=== PATIENT | female | born 1960 | race Caucasian/White ===

== ENCOUNTER → 2018-05-27 | Outpatient (CLI) | payer OTHER ==
[~2018-05-27] MED LIST: CEPH500 PO; CLIN300 PO; HYDACE5 PO
[2018-05-29 14:07] LABS: HPV 16 Negative (Negative); HPV 18 Negative (Negative); HPV OTHER HR TYPES Negative (Negative)
== END | disposition home or self-care (01) ==
LOC: LAB 17:18 → LAB SHORT 17:18
PROVIDERS: Nurse Practitioner Family
DX: Z01.419 Encounter for gynecological examination (general) (routine) without abnormal findings (principal)
CPT/HCPCS: 87624; G0145

== ENCOUNTER 2018-08-08 21:15 | Emergency (ER) | payer OTHER ==
[~2018-08-08] VITALS: Ht 170.2 cm; Wt 72.6 kg
== END 2018-08-08 22:25 | disposition home or self-care (01) ==
LOC: ER 21:15
DX: S60.011A Contusion of right thumb without damage to nail, initial encounter (principal); W22.8XXA Striking against or struck by other objects, initial encounter; Z88.0 Allergy status to penicillin
CPT/HCPCS: 73140; 99283-25; A9270

== ENCOUNTER 2020-05-12 11:48 | Emergency (ER) | payer OTHER ==
[~2020-05-12] VITALS: Ht 165.1 cm; Wt 81.7 kg
[2020-05-12] MEDS ORDERED: PRED5 (12:17)
[2020-05-12] MEDS ORDERED: GABA100 (12:17)
[2020-05-12] MEDS ORDERED: Norco 5-325 Ta1 EACH PO (12:17)
== END 2020-05-12 14:05 | disposition home or self-care (01) ==
LOC: ER 11:48
DX: M79.605 Pain in left leg (principal); Z88.0 Allergy status to penicillin
CPT/HCPCS: 93971; 99283-25

== ENCOUNTER 2021-09-05 12:10 | Inpatient (IN) | payer OTHER ==
[~2021-09-05] VITALS: Ht 167.6 cm; Wt 94.6 kg
[~2021-09-05 12:10] MED LIST changes: +GABA100; +Norco 5-325 Ta1 EACH PO; +PRED5
[2021-09-05] MEDS ORDERED: SULTRIDS PO (12:29)
[2021-09-05 12:56] LABS: BASOPHILS ABSOLUTE AUTO 0.06 K/mm3 (0.00-0.23); BASOPHILS PERCENT AUTO 0 % (0-2); EOSINOPHILS ABSOLUTE AUTO 0.11 K/mm3 (0.00-0.68); EOSINOPHILS PERCENT AUTO 1 % (0-6); Hematocrit 42.4 % (33.0-51.0); Hemoglobin 14.6 g/dL (11.5-16.0); IMMATURE GRAN ABSOLUTE AUTO 0.08 K/mm3 (0.00-0.10); IMMATURE GRAN PERCENT AUTO 1 % (0-1); LYMPHOCYTES PERCENT AUTO 11 % (21-46); MONOCYTES ABSOLUTE AUTO 1.31 K/mm3 (0.16-1.47); MONOCYTES PERCENT AUTO 8 % (4-13); Mean Corpuscular HGB 32.6 pg (26.0-34.0); Mean Corpuscular HGB Conc 34.4 g/dL (31.5-36.5); Mean Corpuscular Volume 95 fL (80-100); Mean Platelet Volume 9.6 fL (9.1-12.4); NEUTROPHILS ABSOLUTE AUTO 13.72 K/mm3 (1.96-9.15); NEUTROPHILS PERCENT AUTO 80 % (41-73); Platelet Count 323 K/mm3 (150-400); RDW Coefficient Variation 11.6 % (11.7-14.2); RDW Standard Deviation 40.5 fL (35.1-46.3); Red Blood Cell Count 4.48 M/mm3 (3.80-5.20); White Blood Cell Count 17.18 K/mm3 (4.00-11.30)
[2021-09-05 13:45] LABS: Alanine Aminotransfer (ALT/SGP 29 U/L (12-78); Albumin, Blood 3.1 g/dL (3.4-5.0); Albumin/Globulin Ratio 0.7 (0.8-1.8); Alk Phos 123 U/L (50-136); Anion Gap 7 mmol/L (6-16); Aspartate Aminotrans (AST/SGOT 24 U/L (12-37); Bilirubin, Total 0.9 mg/dL (0.1-1.0); Blood Urea Nitrogen 12 mg/dL (8-24); Bun/Creatinine Ratio 18.1 (12.0-20.0); C-REACTIVE PROTEIN, EXT RANGE >19.000 mg/dL (0.000-0.300); CO2, Blood 27 mmol/L (21-32); Calcium, Blood 9.1 mg/dL (8.5-10.1); Chloride, Blood 103 mmol/L (98-108); Creatinine, Blood 0.66 mg/dL (0.40-1.00); Globulin, Blood 4.3 g/dL (2.2-4.0); Glomerular Filtration Rate 102 (60-); Glucose, Blood 118 mg/dL (70-99); Potassium, Blood 3.5 mmol/L (3.5-5.5); Sodium, Blood 137 mmol/L (136-145); Total Protein, Blood 7.4 g/dL (6.4-8.2)
--- NOTE | 2021-09-05 18:46 | NUR ---
PATIENT ADMITTED TO MEDICAL FLOOR AT 1830 Patient AOx4, independent in room. Admitted for right hand abscess, surgery planned for tomorrow morning. MD cleaned wound in ER, and applied dressing. NPO at midnight.
[2021-09-05] MEDS ORDERED: Ventolin/Prove6.7 GM INH (21:26)
[2021-09-05] MEDS ORDERED: NEURONTIN300 MG PO (21:26)
[2021-09-05] MEDS ORDERED: IBU800 M1 PO (21:29)
[2021-09-05] MEDS ORDERED: SULFAMETHOXAZO1 EAC1 PO (21:30)
--- NOTE | 2021-09-06 04:22 | NUR ---
SHIFT SUMMARY ADMITTED FOR RIGHT HAND ABSCESS. FULL CODE. PLAN IS FOR SURGICAL CONSULT TO PERFORM A PROCEDURE TODAY. DR. BERNAL IS SURGICAL CONSULT, HE IS AWARE OF CONSULT AND HAS SEEN THE PT. SHE IS INDEPENDENT IN ROOM, REGULAR DIET, ON RA. SHE HAS BEEN NPO SINCE 0000. SHE IS A&O X4. I HAVE MEDICATED FOR PAIN THIS SHIFT. IV ANTIB RX ARE SCHEDULED.
[2021-09-06 05:24] LABS: BASOPHILS ABSOLUTE AUTO 0.04 K/mm3 (0.00-0.23); BASOPHILS PERCENT AUTO 0 % (0-2); EOSINOPHILS ABSOLUTE AUTO 0.07 K/mm3 (0.00-0.68); EOSINOPHILS PERCENT AUTO 0 % (0-6); Hematocrit 39.5 % (33.0-51.0); Hemoglobin 13.5 g/dL (11.5-16.0); IMMATURE GRAN ABSOLUTE AUTO 0.09 K/mm3 (0.00-0.10); IMMATURE GRAN PERCENT AUTO 1 % (0-1); LYMPHOCYTES ABSOLUTE AUTO 1.53 K/mm3 (0.84-5.20); LYMPHOCYTES PERCENT AUTO 9 % (21-46); MONOCYTES ABSOLUTE AUTO 1.51 K/mm3 (0.16-1.47); MONOCYTES PERCENT AUTO 9 % (4-13); Mean Corpuscular HGB 32.7 pg (26.0-34.0); Mean Corpuscular HGB Conc 34.2 g/dL (31.5-36.5); Mean Corpuscular Volume 96 fL (80-100); Mean Platelet Volume 9.7 fL (9.1-12.4); NEUTROPHILS ABSOLUTE AUTO 14.01 K/mm3 (1.96-9.15); NEUTROPHILS PERCENT AUTO 81 % (41-73); Platelet Count 328 K/mm3 (150-400); RDW Coefficient Variation 11.7 % (11.7-14.2); RDW Standard Deviation 41.1 fL (35.1-46.3); Red Blood Cell Count 4.13 M/mm3 (3.80-5.20); White Blood Cell Count 17.25 K/mm3 (4.00-11.30)
[2021-09-06 10:27] LABS: Influenza A, PCR NEGATIVE (NEGATIVE); Influenza B, PCR NEGATIVE (NEGATIVE); Resp Syncytial Virus, PCR NEGATIVE (NEGATIVE); SARS-Cov-2 (COVID-19) PCR, MMC NEGATIVE (NEGATIVE)
--- NOTE | 2021-09-06 10:36 | NUR ---
TO DAY SURG, 10:35
--- NOTE | 2021-09-06 14:42 | NUR ---
PT BP ELEVATED. STATES IN GOOD AMT OF PAIN. MED FOR PAIN.
--- NOTE | 2021-09-06 14:54 | NUR ---
R/T PAIN MANAGEMENT. STARTED ICE PACKS.
--- NOTE | 2021-09-06 18:34 | NUR ---
PT QUITE PLEASANT TODAY. HAD ABSCESS ON RT HAND I&D TODAY. DID HAVE SOME HYPERTENSION. MEDICATED FOR PAIN AND ALSO GAVE ICE PACKS. BP RETURNED TO NORMAL. PT YASMEEN WELL. NO BLEEDING NOTED. FINGERS WARM PINK. CAP REFILL < 3 SEC. PAIN MANAGED WITH AVAIL. MEDS. PT CONTINUES TO AMBULATE TO BATHROOM. STATES LIKE SHOWER AFTER DINNER AND ABX DONE. WILL PASS TO NITE SHIFT ABX NOT DONE FOR SOME TIME YET. BED IN LOW POSITION, CALL LITE IN REACH, CALLS APPROP
[2021-09-07 05:22] LABS: BASOPHILS ABSOLUTE AUTO 0.04 K/mm3 (0.00-0.23); BASOPHILS PERCENT AUTO 0 % (0-2); EOSINOPHILS ABSOLUTE AUTO 0.05 K/mm3 (0.00-0.68); EOSINOPHILS PERCENT AUTO 0 % (0-6); Hematocrit 38.6 % (33.0-51.0); Hemoglobin 13.3 g/dL (11.5-16.0); IMMATURE GRAN ABSOLUTE AUTO 0.07 K/mm3 (0.00-0.10); IMMATURE GRAN PERCENT AUTO 1 % (0-1); LYMPHOCYTES ABSOLUTE AUTO 2.13 K/mm3 (0.84-5.20); LYMPHOCYTES PERCENT AUTO 15 % (21-46); MONOCYTES ABSOLUTE AUTO 1.35 K/mm3 (0.16-1.47); MONOCYTES PERCENT AUTO 9 % (4-13); Mean Corpuscular HGB 33.2 pg (26.0-34.0); Mean Corpuscular HGB Conc 34.5 g/dL (31.5-36.5); Mean Corpuscular Volume 96 fL (80-100); Mean Platelet Volume 9.2 fL (9.1-12.4); NEUTROPHILS ABSOLUTE AUTO 11.06 K/mm3 (1.96-9.15); NEUTROPHILS PERCENT AUTO 75 % (41-73); Platelet Count 360 K/mm3 (150-400); RDW Coefficient Variation 11.7 % (11.7-14.2); RDW Standard Deviation 41.6 fL (35.1-46.3); Red Blood Cell Count 4.01 M/mm3 (3.80-5.20)
[2021-09-07 05:42] LABS: Alanine Aminotransfer (ALT/SGP 23 U/L (12-78); Albumin, Blood 2.6 g/dL (3.4-5.0); Albumin/Globulin Ratio 0.6 (0.8-1.8); Alk Phos 116 U/L (50-136); Anion Gap 9 mmol/L (6-16); Aspartate Aminotrans (AST/SGOT 11 U/L (12-37); Bilirubin, Total 0.3 mg/dL (0.1-1.0); Blood Urea Nitrogen 16 mg/dL (8-24); Bun/Creatinine Ratio 26.9 (12.0-20.0); CO2, Blood 27 mmol/L (21-32); Calcium, Blood 8.9 mg/dL (8.5-10.1); Chloride, Blood 103 mmol/L (98-108); Creatinine, Blood 0.59 mg/dL (0.40-1.00); Glomerular Filtration Rate 104 (60-); Glucose, Blood 124 mg/dL (70-99); Potassium, Blood 3.1 mmol/L (3.5-5.5); Sodium, Blood 139 mmol/L (136-145); Total Protein, Blood 6.6 g/dL (6.4-8.2); Vancomycin, Trough 10.6 ug/mL (5.0-10.0)
--- NOTE | 2021-09-07 13:03 | NUR ---
PER JESSICA BERNARD. CANCEL GABAPENTIN
--- NOTE | 2021-09-07 19:22 | NUR ---
PT PLEASANT TODAY. PAIN MANAGED WITH AVAIL MEDS. IV JUST INFILTRATED. CHARGE TO PLACE NEW. NO BLEEDING NOTED AT I&D SITE. FINGERS PINK WARM DRY. NO OTHER CONCERNS NOTED. NO VISITORS NOTED TODAY. BED IN LOW POSITION, CALL LITE IN REACH, CALLS APPROP
--- NOTE | 2021-09-08 04:57 | NUR ---
SHIFT SUMMARY 60 YR F ADMITTED ON 09/06/21 FOR ABSCESS OF RIGHT HAND. FULL CODE. I&D DONE 2 DAYS AGO. HAND BANDAGING IS CLEAN, DRY, AND INTACT. PAIN IS MANAGED WITH MEDS PER EMAR. NO ACUTE CHANGES THIS SHIFT. NEW IV PLACED AT BEGINNING OF SHIFT. PT HAS SLEPT FOR MOST OF SHIFT
[2021-09-08 05:33] LABS: BASOPHILS ABSOLUTE AUTO 0.08 K/mm3 (0.00-0.23); BASOPHILS PERCENT AUTO 1 % (0-2); EOSINOPHILS ABSOLUTE AUTO 0.29 K/mm3 (0.00-0.68); EOSINOPHILS PERCENT AUTO 3 % (0-6); Hematocrit 40.9 % (33.0-51.0); Hemoglobin 13.7 g/dL (11.5-16.0); IMMATURE GRAN ABSOLUTE AUTO 0.19 K/mm3 (0.00-0.10); IMMATURE GRAN PERCENT AUTO 2 % (0-1); LYMPHOCYTES ABSOLUTE AUTO 2.96 K/mm3 (0.84-5.20); LYMPHOCYTES PERCENT AUTO 30 % (21-46); MONOCYTES ABSOLUTE AUTO 1.02 K/mm3 (0.16-1.47); MONOCYTES PERCENT AUTO 10 % (4-13); Mean Corpuscular HGB 32.5 pg (26.0-34.0); Mean Corpuscular HGB Conc 33.5 g/dL (31.5-36.5); Mean Corpuscular Volume 97 fL (80-100); Mean Platelet Volume 8.7 fL (9.1-12.4); NEUTROPHILS ABSOLUTE AUTO 5.49 K/mm3 (1.96-9.15); NEUTROPHILS PERCENT AUTO 55 % (41-73); Platelet Count 400 K/mm3 (150-400); RDW Coefficient Variation 11.8 % (11.7-14.2); RDW Standard Deviation 41.7 fL (35.1-46.3); Red Blood Cell Count 4.22 M/mm3 (3.80-5.20); White Blood Cell Count 10.03 K/mm3 (4.00-11.30)
[2021-09-08 05:53] LABS: Alanine Aminotransfer (ALT/SGP 31 U/L (12-78); Albumin, Blood 2.6 g/dL (3.4-5.0); Albumin/Globulin Ratio 0.6 (0.8-1.8); Alk Phos 101 U/L (50-136); Anion Gap 6 mmol/L (6-16); Aspartate Aminotrans (AST/SGOT 21 U/L (12-37); Bilirubin, Total 0.2 mg/dL (0.1-1.0); Blood Urea Nitrogen 18 mg/dL (8-24); CO2, Blood 28 mmol/L (21-32); Chloride, Blood 106 mmol/L (98-108); Creatinine, Blood 0.53 mg/dL (0.40-1.00); Glomerular Filtration Rate 107 (60-); Glucose, Blood 108 mg/dL (70-99); Potassium, Blood 3.7 mmol/L (3.5-5.5); Sodium, Blood 140 mmol/L (136-145); Total Protein, Blood 6.6 g/dL (6.4-8.2); Vancomycin, Trough 14.4 ug/mL (5.0-10.0)
[2021-09-08 13:46] LABS: Campylobacter Sp Not Detected (NOT DETECT)
[2021-09-08 13:47] LABS: Adenovirus F 40/41 Not Detected (NOT DETECT); Astrovirus Not Detected (NOT DETECT); Cryptosporidium Not Detected (NOT DETECT); Cyclospora Cayetanensis Not Detected (NOT DETECT); E. Coli O157 Not Detected (NOT DETECT); Entamoeba Histolytica Not Detected (NOT DETECT); Enteroaggregative E. coli-EAEC Not Detected (NOT DETECT); Enteropathogenic E. coli-EPEC Detected (NOT DETECT); Enterotoxigenic E. coli-ETEC Not Detected (NOT DETECT); Giardia Lamblia Not Detected (NOT DETECT); Norovirus GI/GII Not Detected (NOT DETECT); Plesiomonas Shigelloides Not Detected (NOT DETECT); Rotavirus A Not Detected (NOT DETECT); Salmonella Sp Not Detected (NOT DETECT); Sapovirus Not Detected (NOT DETECT); Shiga Toxin-prod E. coli-STEC Not Detected (NOT DETECT); Shigella/Enteroin E. coli-EIEC Not Detected (NOT DETECT); Vibrio Cholerae Not Detected (NOT DETECT); Vibrio Sp Not Detected (NOT DETECT); Yersinia Enterocolitica Not Detected (NOT DETECT)
--- NOTE | 2021-09-08 14:40 | NUR ---
1100- DR BRIONES IN TO EVAL R HAND INCISION- TOOK DOWN AND VISUALIZED SUTURES INTACT, MOT AMOUNT OF SANGUINEOUS DRAINAGE. CMS INTACT, MOD SWELLING. ANALI REDRESSED WITH 4X4 GAUZE/LORIE WRAP, PLAN FOR SURGERY TOMORROW, NPO AFTER MIDNIGHT.
--- NOTE | 2021-09-08 18:50 | NUR ---
SUMMARY- PT A/O X4, INDEPENDANT IN ROOM. DR BRIONES VIEWED R HAND WOUNDS THIS AM AND TOOK DRESSING DOWN AND REPLACED. SUTURES INTACT WITH SANG DRAINAGE. CMS INCACT. PAIN CONTROLLED WITH OXY 5MG AND TYLENOL Q4 PRN. TOLERATINF FOOD AND FLUIDS. COMPLAINED OF LOOSE STOOL THIS AM. GI PANAL POS FOR C-DIFF. ADDED ENTERIC PRECAUTIONS TO THE CONTACT PRECAUTIONS. PLAN FOR NPO AFTER MN FOR I/D PROCEDURE 09/09. WILL REPORT TO ANANT HARGROVE.
--- NOTE | 2021-09-09 04:44 | NUR ---
SHIFT SUMMARY 60 YR F ADMITTED ON 09/06/21 FOR ABSCESS (CELLULITIS) OF RIGHT HAND. FULL CODE. PT IS IN ISOLATION PRECAUTIONS DUE TO BEING POSITIVE FOR MRSA AND CDIF. SHE HAS BEEN NPO SINCE MIDNIGHT SHE IS SHCEDULED FOR I&D TODAY. PAIN IS MANAGED WELL W/ TYLENOL AND HYDROCODONE PER EMAR. PT IS INDEPENDANT IN HER ROOM AND WAS UP FOR A SHOWER THIS EVENING. NO ACUTE CHANGES THIS SHIFT. PT IS COOPERATIVE WITH CARE AND CALLS APPROPRIATELY FOR ASSISTANCE.
--- NOTE | 2021-09-09 10:07 | NUR ---
09/09/21 Carin Cam PT ON SCHEDULED ANTIBIOTICS
--- NOTE | 2021-09-09 11:55 | NUR ---
PT SENT TO OR AT 0855 VIA STRETCHER, REPORT TO PRE-OP RN'S
--- NOTE | 2021-09-09 11:59 | NUR ---
PT RETURNED FROM PACU 1142, A/O AND ALERT, ANSWERS QUESTIONS APPROPRIATELY. R HAND TO WOUND VAC, 12OMM/HG SUCTION. STATES PAIN 5/10, A LITTLE MORE THAN TOLERABLE. ITCHING IS HER MAIN COMPLAINT, ALL OVER FACE AND BACK, NOSE, HEAD. WILL REPORT TO DR BERNARD
--- NOTE | 2021-09-09 20:07 | NUR ---
SUMMARY- PT A/O X4. S/P I&D OF R HAND PER DR BRIONES- RETURNED TO ROOM FROM PACU 1145- CMS HAS REMAINED INTACT. PT IS MOTIVATED TO KEEP MOVING FINGERS AND KEEPING HAND ELEVATED. WOUND VAC PATENT 120MM/HG CONT. SG DRESSING LORIE INTACT. PAIN CONTROLLED WITH OXYCODONE 5-10MG APPROX Q4. STOOLS ARE NO LONGER LOOSE. LOOKS LIKE C'DIFF IS CONONIZED. SHOULD FOLLOW UP WITH [facility] RN PRESLEY VARGHESE OR SAL PEREZ TO SEE IF PT NEEDS TO CONT IN ENTERIC PRECAUTIONS. PT TOLERATING FOOD AND FLUIDS. GETS UP TO THE BATHROOM SBA SO STAFF CAN HELP MANAGE WOUND VAC AND DETATCH SCD'S. LOOKING FOR TRAPEZE, BUT NONE FOUND AVAILABLE ANYWHERE ON MEDICAL FLOOR OR PENTHOUSE. REPORTED ALL TO NOC RN.
[2021-09-10 05:20] LABS: BASOPHILS ABSOLUTE AUTO 0.06 K/mm3 (0.00-0.23); BASOPHILS PERCENT AUTO 1 % (0-2); EOSINOPHILS ABSOLUTE AUTO 0.07 K/mm3 (0.00-0.68); EOSINOPHILS PERCENT AUTO 1 % (0-6); Hemoglobin 14.3 g/dL (11.5-16.0); IMMATURE GRAN ABSOLUTE AUTO 0.46 K/mm3 (0.00-0.10); IMMATURE GRAN PERCENT AUTO 4 % (0-1); LYMPHOCYTES ABSOLUTE AUTO 3.53 K/mm3 (0.84-5.20); LYMPHOCYTES PERCENT AUTO 29 % (21-46); MONOCYTES PERCENT AUTO 7 % (4-13); Mean Corpuscular HGB 32.7 pg (26.0-34.0); Mean Corpuscular Volume 96 fL (80-100); Mean Platelet Volume 8.4 fL (9.1-12.4); NEUTROPHILS ABSOLUTE AUTO 7.37 K/mm3 (1.96-9.15); NEUTROPHILS PERCENT AUTO 60 % (41-73); Platelet Count 436 K/mm3 (150-400); RDW Coefficient Variation 11.5 % (11.7-14.2); RDW Standard Deviation 40.6 fL (35.1-46.3); Red Blood Cell Count 4.37 M/mm3 (3.80-5.20); White Blood Cell Count 12.29 K/mm3 (4.00-11.30)
--- NOTE | 2021-09-10 05:25 | NUR ---
PAIN MANAGED EFFECTIVELY WITH 10MG OXYCODONE. PT REPORTS NUMBNESS ON RIGHT MIDDLE FINGER THAT IS NEW, PULSES PALPABLE AND SKIN IS PINK AND WARM. NO ACUTE CHANGES IN THE NIGHT. PT IS A STANDBY ASSIST TO THE BSC. RIGHT LIMB HAS BEEN ELEVATED DURING THE NIGHT.
[2021-09-10 05:40] LABS: Vancomycin, Trough 15.7 ug/mL (5.0-10.0)
--- NOTE | 2021-09-10 17:54 | NUR ---
SHIFT SUMMARY PATIENT A&OX4. SBA IN ROOM TO MANAGE WOUND VAC. C/O RIGHT HAND PAIN, MEDICATED PER APR X3. RECEIVING IV ANTIBIOTICS. I&D OF RIGHT HAND YESTERDAY, WOUND VAC IN PLACE. C/O MIDDLE FINGER NUMBNESS. PATIENT ABLE TO MOVE FINGER AND ABLE TO FEEL WHEN TOUCHED. ORTHO SURGEON SLIGHTLY LOOSENED BANDAGE. WILL CONTINUE TO MONITOR.
[2021-09-11 05:11] LABS: BASOPHILS ABSOLUTE AUTO 0.12 K/mm3 (0.00-0.23); BASOPHILS PERCENT AUTO 1 % (0-2); EOSINOPHILS PERCENT AUTO 2 % (0-6); Hemoglobin 14.9 g/dL (11.5-16.0); IMMATURE GRAN ABSOLUTE AUTO 0.49 K/mm3 (0.00-0.10); IMMATURE GRAN PERCENT AUTO 4 % (0-1); LYMPHOCYTES ABSOLUTE AUTO 3.53 K/mm3 (0.84-5.20); LYMPHOCYTES PERCENT AUTO 28 % (21-46); MONOCYTES ABSOLUTE AUTO 0.98 K/mm3 (0.16-1.47); MONOCYTES PERCENT AUTO 8 % (4-13); Mean Corpuscular HGB 32.8 pg (26.0-34.0); Mean Corpuscular HGB Conc 33.9 g/dL (31.5-36.5); Mean Corpuscular Volume 97 fL (80-100); Mean Platelet Volume 8.4 fL (9.1-12.4); NEUTROPHILS ABSOLUTE AUTO 7.16 K/mm3 (1.96-9.15); NEUTROPHILS PERCENT AUTO 57 % (41-73); Platelet Count 454 K/mm3 (150-400); RDW Coefficient Variation 11.9 % (11.7-14.2); RDW Standard Deviation 42.2 fL (35.1-46.3); Red Blood Cell Count 4.54 M/mm3 (3.80-5.20); White Blood Cell Count 12.48 K/mm3 (4.00-11.30)
--- NOTE | 2021-09-11 06:20 | NUR ---
SHIFT SUMMARY NOC: PT SLEPT MOST OF NIGHT. IV THIS MORNING WAS PAINFUL WITH VANCOMYCIN RUNNING. VANCO STOPPED AND WILL OBTAIN NEW IV SITE. PAIN WELL CONTROLLED WITH CURRENT PRN MEDICATIONS. NO ACUTE EVENTS.
--- NOTE | 2021-09-11 18:03 | NUR ---
SHIFT SUMMARY DR. BRIONES CAME IN TO CHANGE R HAND DRESSING THIS AFTERNOON. AFTER REMOVING THE WOUND VAC AND PACKING, CARE HAD TO BE STOPPED TO GET THE PT SOME PAIN RELIEF. A ONE TIME FENTANYL 50MCG WAS GIVEN TO AIDE IN PAIN AND THEN DR. BRIONES FINISHED REPACKING THE WOUND AND DRESSING IT. WOUND CARE ORDERS UPDATED BY HIM. A DAILY PRN FENTANYL ORDER WAS PLACED FOR DRESSING CHANGES. OTHERWISE PT HAD AN UNEVENTFUL DAY. AMBULATING IN ROOM INDEPENDENTLY. PLEASANT AND COOPERATIVE WITH CARE. VS REVIEWED. CALL LIGHT IN REACH. DENIES OTHER NEEDS AT THIS TIME.
[2021-09-12 04:45] LABS: BASOPHILS ABSOLUTE AUTO 0.07 K/mm3 (0.00-0.23); BASOPHILS PERCENT AUTO 1 % (0-2); EOSINOPHILS ABSOLUTE AUTO 0.11 K/mm3 (0.00-0.68); EOSINOPHILS PERCENT AUTO 1 % (0-6); Hematocrit 41.1 % (33.0-51.0); Hemoglobin 14.1 g/dL (11.5-16.0); IMMATURE GRAN ABSOLUTE AUTO 0.39 K/mm3 (0.00-0.10); IMMATURE GRAN PERCENT AUTO 3 % (0-1); LYMPHOCYTES ABSOLUTE AUTO 2.19 K/mm3 (0.84-5.20); LYMPHOCYTES PERCENT AUTO 15 % (21-46); MONOCYTES ABSOLUTE AUTO 1.21 K/mm3 (0.16-1.47); MONOCYTES PERCENT AUTO 9 % (4-13); Mean Corpuscular HGB 33.2 pg (26.0-34.0); Mean Corpuscular HGB Conc 34.3 g/dL (31.5-36.5); Mean Corpuscular Volume 97 fL (80-100); Mean Platelet Volume 8.4 fL (9.1-12.4); NEUTROPHILS ABSOLUTE AUTO 10.22 K/mm3 (1.96-9.15); NEUTROPHILS PERCENT AUTO 72 % (41-73); Platelet Count 401 K/mm3 (150-400); RDW Coefficient Variation 11.8 % (11.7-14.2); RDW Standard Deviation 41.9 fL (35.1-46.3); Red Blood Cell Count 4.25 M/mm3 (3.80-5.20); White Blood Cell Count 14.19 K/mm3 (4.00-11.30)
--- NOTE | 2021-09-12 06:09 | NUR ---
SHIFT SUMMARY NOC: PT SLEPT MOST OF NIGHT. RIGHT HAND IS WRAPPED, ELEVATED, ICE PACK APPLIED. PAIN WELL CONTROLLED WITH CURRENT PRN MEDICATION. NO ACUTE EVENTS.
--- NOTE | 2021-09-12 18:18 | NUR ---
SHIFT SUMMARY PATIENT MEDICATED FOR PAIN X2. PATIENT DENIES NAUSEA AND SHORTNESS OF BREATH. PATIENT IS INDEPENDENT IN ROOM. PATIENT IS EATING AND DRINKING WELL. PATIENT MEDICATED PRIOR TO DRESSING CHANGE TO RIGHT HAND. PATIENT YELLING OUT IN PAIN DURING DRESSING CHANGE, BUT STATED AFTERWARDS THAT TODAYS DRESSING CHANGE WAS LESS PAINFUL THAN YESTERDAY. PATIENT IS PLEASANT AND COOPERATIVE WITH CARE.
--- NOTE | 2021-09-13 05:40 | NUR ---
SHIFT SUMMARY NOC: PT HAS PAIN AND ITCHING TO RIGHT HAND. PRN MEDS GIVEN WITH GOOD EFFECT. PT INDEPENDENT IN ROOM. DID NOT SLEEP MUCH. UP MOST OF NIGHT WATCHING TV. NO ACUTE EVENTS.
[2021-09-13] MEDS ORDERED: SULTRIDS PO (14:46)
[2021-09-13] MEDS ORDERED: VISBIOME 112.51 EACH PO (14:47)
[2021-09-13] MEDS ORDERED: HYDACE10B PO (14:48)
--- NOTE | 2021-09-13 18:37 | NUR ---
SHIFT SUMMARY PATIENT MEDICATED FOR PAIN X3, ONCE FOR DRESSING CHANGE. PATIENT DENIES NAUSEA AND SHORTNESS OF BREATH. PATIENT MEDICATED FOR ITCHING X2. PATIENT IS INDEPENDENT IN ROOM. PATIENT HAS DISCHARGE ORDERS, BUT ON HOLD FOR WOUND CLINIC CONSULT. PATIENT IN NEED OF DAILY DRESSING CHANGES. WOUND CLINIC EVALUATED PATIENT TODAY, APPOINTMENT MADE FOR FRIDAY, 09/17. PATIENT TOELRATE DRESSING CHANGE BETTER TODAY. PATIENT IS EATING AND DRINKING WELL. PATIENT IS PLEASANT AND COOPERATIVE WITH CARE.
--- NOTE | 2021-09-14 04:58 | NUR ---
SHIFT SUMMARY: PT IS A/OX4. INDEPENDENT IN THE ROOM. SHE WILL USE THE CALL BUTTON FOR NEEDS. THERE IS PRN PAIN MEDICATION IN THE EMAR. SHE IS A POSSIBLE DC TODAY IF SHE CAN FIND SOMEONE TO DO THE DAILY DRESSING CHANGE TO HER RT HAND THIS FRIDAY AND FRIDAY OR IF SHE CAN COME IN TO THE ED FOR DRESSING CHANGES THOSE DAYS? WE WILL CONTINUE TO MONITOR THE REMAINDER OF THE SHIFT.
--- NOTE | 2021-09-14 14:16 | NUR ---
DISCHARGE PATIENT TRANSPORTED VIA WHEELCHAIR TO PRIVATE VEHICLE. DISCHARGE INSTRUCTIONS EXPLAINED TO PATIENT. PATIENT STATED UNDERSTANDING. PACKET SENT WITH PATIENT. IV REMOVED WITHOUT DIFFICULTY. BELONGINGS SENT WITH PATIENT. PATIENT EDUCATED ON DRESSING CHANGE. PATIENT GIVEN WRITTEN INSTRUCTIONS FOR DRESSING CHANGE. MEDICATIONS FAXED TO PREFERRED PHARMACY. WOUND CLINIC APPOINTMENT SCEDULED FOR SUNDAY 09/17 AT 3PM. FOLLOW UP WITH DR. BRIONES SCHEDULED FOR 09/18 AT 2:30PM. PATIENT AWARE OF BOTH AND INFORMATION GIVEN FOR BOTH OFFICES.
== END 2021-09-14 14:04 | disposition home or self-care (01) | DRG 580 ==
LOC: ER 12:10 → SURS 12:11 → MEDS 12:11 → ER 17:12 → MEDS 18:43
PROVIDERS: Family Medicine; Orthopaedic Surgery; Physician Assistant; Student in an Organized Health Care Education/Training Program; ADMIT Hospitalist
PROC: 0JBJ0ZZ Excision of Right Hand Subcutaneous Tissue and Fascia, Open Approach (ICD-10-PCS; 2021-09-09)
PROC: 0LB70ZZ Excision of Right Hand Tendon, Open Approach (ICD-10-PCS; 2021-09-09)
PROC: 0H9FXZZ Drainage of Right Hand Skin, External Approach (ICD-10-PCS; principal; 2021-09-09 08:30)
DX: L02.511 Cutaneous abscess of right hand (principal); A04.72 Enterocolitis due to Clostridium difficile, not specified as recurrent; I96 Gangrene, not elsewhere classified; M54.30 Sciatica, unspecified side; L03.011 Cellulitis of right finger; B95.62 Methicillin resistant Staphylococcus aureus infection as the cause of diseases classified elsewhere; B95.4 Other streptococcus as the cause of diseases classified elsewhere; R20.0 Anesthesia of skin; R20.2 Paresthesia of skin; F12.90 Cannabis use, unspecified, uncomplicated; Z20.822 Contact with and (suspected) exposure to COVID-19; Z88.0 Allergy status to penicillin; Z79.899 Other long term (current) drug therapy; Z79.891 Long term (current) use of opiate analgesic; Z79.52 Long term (current) use of systemic steroids; Z87.891 Personal history of nicotine dependence; Z98.890 Other specified postprocedural states
CPT/HCPCS: 0241U; 36415; 73130; 73201; 80053; 80202; 82565; 83605; 85025; 86140; 87040; 87070; 87075; 87077; 87147; 87186; 87205; 87324; 87507; 94760; 96366; 96367; 97110; 97165; 97530; 99285-25; A9270; G0378; J0696; J1100; J1170; J1650; J2250; J2405; J2704; J3010; J3370; J7030; J7040; J7060; Q9967

== ENCOUNTER 2021-09-17 05:43 | Day surgery (SDC) | payer OTHER ==
[~2021-09-17 05:43] MED LIST changes: +HYDACE10B PO; +IBU800 M1 PO; +NEURONTIN300 MG PO; +SULFAMETHOXAZO1 EAC1 PO; +SULTRIDS PO; +VISBIOME 112.51 EACH PO; +Ventolin/Prove6.7 GM INH
== END 2021-09-17 23:31 | disposition home or self-care (01) ==
LOC: WOUND 05:43
DX: L03.113 Cellulitis of right upper limb (principal); T81.33XA Disruption of traumatic injury wound repair, initial encounter; Z48.817 Encounter for surgical aftercare following surgery on the skin and subcutaneous tissue; Z88.0 Allergy status to penicillin; Z87.891 Personal history of nicotine dependence; Y83.9 Surgical procedure, unspecified as the cause of abnormal reaction of the patient, or of later complication, without mention of misadventure at the time of the procedure
CPT/HCPCS: A9270; G0463

== ENCOUNTER 2021-09-24 02:05 | Day surgery (SDC) | payer OTHER | END 2021-09-24 23:21 | disposition home or self-care (01) | LOC: WOUND 02:05 | DX: L03.113 Cellulitis of right upper limb (principal); T81.33XD Disruption of traumatic injury wound repair, subsequent encounter | CPT/HCPCS: A9270; G0463 ==

== ENCOUNTER 2021-10-01 01:40 | Day surgery (SDC) | payer OTHER | END 2021-10-01 23:52 | disposition home or self-care (01) | LOC: WOUND 01:40 | DX: L03.113 Cellulitis of right upper limb (principal); T81.31XA Disruption of external operation (surgical) wound, not elsewhere classified, initial encounter | CPT/HCPCS: A9270; G0463 ==

== ENCOUNTER 2021-10-15 00:28 | Day surgery (SDC) | payer OTHER | END 2021-10-16 00:52 | disposition home or self-care (01) | LOC: WOUND 00:28 | DX: L03.113 Cellulitis of right upper limb (principal); T81.31XD Disruption of external operation (surgical) wound, not elsewhere classified, subsequent encounter; Y83.8 Other surgical procedures as the cause of abnormal reaction of the patient, or of later complication, without mention of misadventure at the time of the procedure ==